=== PATIENT | female | born 1960 | race Caucasian/White ===

== ENCOUNTER 2022-08-17 09:53 | Emergency (ER) | payer OTHER ==
[2022-08-17 10:13] VITALS: TEMP 98.1; BMI 26.6
[2022-08-17] MEDS ORDERED: ACETAMINOPHEN 1000 MG/100 ML BAG IVPB ONE (10:37)
[2022-08-17] MEDS ORDERED: ACETAMINOPHEN INJECTION 100 ML IVPB ONE (11:10)
[2022-08-17 11:22] LABS: BASO % 1.2 % (0-2.0); EOS % 3.5 % (0-4.5); HEMATOCRIT 37.2 % (32.4-45.2); LYMPH % 27.2 % (8-40); MCH 31.9 pg (25.7-33.7); MEAN CELL VOLUME 91.3 fl (80-96); MEAN PLT VOLUME 7.8 fl (7.5-11.1); MONO % 12.8 % (3.8-10.2); NEUT % 55.3 % (42.8-82.8); PLATELET COUNT 186 10^3/uL (134-434); RBC 4.08 M/mm3 (3.60-5.2); RDW 12.4 % (11.6-15.6); WHITE BLOOD COUNT 5.7 K/mm3 (4.0-10.0)
[2022-08-17 11:44] LABS: CALCIUM 9.4 mg/dL (8.5-10.1)
[2022-08-17 11:45] LABS: ALBUMIN 3.4 g/dl (3.4-5.0); BLOOD UREA NITROGEN 24.9 mg/dL (7-18); MAGNESIUM 2.1 mg/dL (1.8-2.4)
[2022-08-17 11:48] LABS: CREATININE 0.8 mg/dL (0.55-1.3)
[2022-08-17 11:49] LABS: BILIRUBIN,TOTAL 0.7 mg/dL (0.2-1); TOT PROT 7.1 g/dl (6.4-8.2)
[2022-08-17 13:48] VITALS: BP 130/74; PULSE 61; RESP 11
[2022-08-17 14:09] LABS: INR 1.19 (0.83-1.09); PROTHROMBIN TIME (PATIENT) 13.8 SEC (9.7-13.0)
[2022-08-17 14:12] LABS: ACTIVATED PTT 27.4 SECONDS (25.2-36.5)
== END 2022-08-17 14:42 | disposition home or self-care (01) ==
LOC: JER 09:53
DX: R07.9 Chest pain, unspecified (principal)
CPT/HCPCS: 0241U-QW; 36415; 71045-TC-FY; 80053; 83690; 83735; 84484; 85025; 85610; 85730; 93005; 93010; 99284-25